=== PATIENT | male | born 1940 | race African-American/Black ===

== ENCOUNTER 2019-12-31 05:02 | Day surgery (SDC) | payer OTHER ==
[2019-12-30 09:45] VITALS: BMI 25.4
--- NOTE | 2019-12-31 05:52 | HP ---
History & Physical Update - History History: No Change - Physical Physical: No Change - Assessment Assessment: No Change - Plan Plan: No Change
[2019-12-31] MEDS ORDERED: KETOROLAC TROMETHAMINE 10 MG TABLET PO PRN (11:22)
--- NOTE | 2019-12-31 11:22 | OP ---
Operative Note - Note: Operative Date: 12/31/19 Pre-Operative Diagnosis: prostate cancer Operation: prostate cryoablation and cystoscopy Findings: prostate ca Post-Operative Diagnosis: Same as Pre-op Surgeon: Clint Flowers Anesthesiologist/PICKER BOX OPERATOR: Torito Montemayor Anesthesia: Spinal, MAC Estimated Blood Loss (mls): 0 Drains & Tubes with Location: 18 fr finnegan Operative Report Dictated: Yes
[2019-12-31] MEDS ORDERED: ceFAZolin SODIUM 1 GM VIAL IVPB ONE (12:37)
[2019-12-31] MEDS ORDERED: MIDAZOLAM HCL 2 MG/2 ML SINGLE DOSE VIAL ONE (12:41)
[2019-12-31] MEDS ORDERED: PROPOFOL 20 ML ONE ×4 (12:55→12:57)
[2019-12-31] MEDS ORDERED: BACITRACIN 15 GM TUBE TOPICAL OINTMENT ONE (13:29)
[2019-12-31] MEDS ORDERED: BACITRACIN 15 GM TUBE TOPICAL OINTMENT TP ONE (13:40)
[2019-12-31] MEDS ORDERED: ONDANSETRON 4 MG/2 ML VIAL IVPUSH PRN (14:04)
[2019-12-31] MEDS ORDERED: PROMETHAZINE HCL 25 MG/1 ML VIAL IVPUSH PRN (14:04)
[2019-12-31] MEDS ORDERED: oxyCODONE HCL 5 MG TABLET PO PRN (14:04)
[2019-12-31] MEDS ORDERED: MEMANTINE HCL 5 MG TABLET (UD) PO ONE (14:45)
--- NOTE | 2019-12-31 15:49 | OP ---
DATE OF OPERATION: 12/31/2019 PREOPERATIVE DIAGNOSIS: Prostate cancer. POSTOPERATIVE DIAGNOSIS: Prostate cancer. PROCEDURE: Cystoscopy and prostate cryoablation. SURGEON: Clint Hebert MD ASSOCIATE PRODUCT MANAGER: None. ANESTHESIA: Spinal, then MAC. ANESTHESIOLOGIST: Torito Montemayor MD SPECIMEN: None. CULTURES: None. DRAINS: Busch catheter 18-Divehi. ESTIMATED BLOOD LOSS: Negligible. COMPLICATIONS: None. DESCRIPTION OF PROCEDURE: Patient was brought in the operating room, placed on the operating table in supine position. After administration of spinal anesthesia, intravenous antibiotics were administered. Sequential compression devices were placed. Patient was placed in dorsal lithotomy position. The perineum was shaved first, and the perineum and genitals were prepped and draped in the usual sterile manner. An 18-Divehi Busch catheter was placed per urethra into the bladder, 10 mL placed in the balloon, placed on gravity drainage. The bladder was then filled with 400 mL of sterile normal saline and clamped. The transrectal ultrasound probe was inserted. Transrectal ultrasound of the prostate was done. Plan was devised for prostate cryoablation. Once the plan was devised, with the patient prepped and draped in the usual sterile fashion, the 6 cryoablation probes were placed in the appropriate locations. This was checked under ultrasound guidance. Two temperature sensors were placed, one in Denonvilliers fascia, one in external sphincter under ultrasound guidance. Now indwelling Busch catheter was removed. Flexible cystoscopy was performed, demonstrated normal anterior urethra. Prostatic urethra measured approximately 4 cm in length, demonstrated no probes had penetrated the urethra. The bladder was entered, thoroughly inspected. There were no foreign bodies, tumors, stones, inflammation. Both ureteral orifices were in the usual location with clear efflux bilaterally. No probes had penetrated the bladder as well. Now a Super Stiff guidewire was passed through the cystoscope into the bladder, and the cystoscope was removed. A urethral warmer was passed over the Super Stiff guidewire and urethral warming was started. Now the position of the probes was reconfirmed under ultrasound. Measurements had been taken, and they were set to the appropriate length for freezing. The cryoablation was now done with 2 freeze-thaw cycles. At the end of the procedure, the probes were removed. Manual pressure on the perineum achieved hemostasis. The urethral warmer was left in place for an additional 5 minutes. The wound was sterilely dressed with Bacitracin, 4 x 4, and Tegaderm. The urethral warmer was removed, 18-Divehi Busch catheter was replaced. He tolerated the procedure well, transferred to recovery room in stable condition. CLINT HEBERT M.D. [id number]
[2019-12-31] MEDS ORDERED: MELATONIN 1 MG TABLET PO ONE (21:56)
[2019-12-31] MEDS ORDERED: MEMANTINE HCL 5 MG TABLET (UD) PO SCH (22:00)
[2020-01-01] MEDS ORDERED: TAMSULOSIN HCL 0.4 MG CAP PO SCH (08:30)
[2020-01-01 08:41] LABS: HEMATOCRIT 38.2 % (35.4-49); HEMOGLOBIN 12.6 GM/dL (11.7-16.9); MCH 30.6 pg (25.7-33.7); MEAN CELL VOLUME 92.6 fl (80-96); MEAN PLT VOLUME 8.3 fl (7.5-11.1); PLATELET COUNT 141 K/MM3 (134-434); RBC 4.13 M/mm3 (4.00-5.60); RDW 13.3 % (11.9-15.9); WHITE BLOOD COUNT 7.2 K/mm3 (4.0-10.0)
[2020-01-01 09:09] LABS: BLOOD UREA NITROGEN 18.9 mg/dL (7-18); CALCIUM 8.3 mg/dL (8.5-10.1); CREATININE 1.2 mg/dL (0.55-1.3); POTASSIUM 4.2 mmol/L (3.5-5.1)
[2020-01-01] MEDS ORDERED: LOSARTAN POTASSIUM 50 MG TABLET (FP) PO SCH (10:00)
[2020-01-01 12:52] VITALS: BP 130/74; PULSE 64; TEMP 98.5
== END 2020-01-01 15:20 | disposition home or self-care (01) ==
LOC: JASUSAT 05:02 → JASU-SURG 05:02 → J8W 17:28 → JASUSAT 01-01 15:20
PROVIDERS: ATTEND Urology
PROC: 0V503ZZ Destruction of Prostate, Percutaneous Approach (ICD-10-PCS; principal; 2019-12-31 12:00)
DX: C61 Malignant neoplasm of prostate (principal); I10 Essential (primary) hypertension
CPT/HCPCS: 55873; C2618; 36415; 80048; 85027; 94760